=== PATIENT | male | born 1945 | race Caucasian/White ===

== ENCOUNTER → 2023-09-21 | Outpatient (CLI) | payer OTHER, SELFPAY ==
--- NOTE | 2023-09-21 12:55 | ECHOD_ITS ---
Reason For Study: Isch. Heart Disease Procedure This was a 2D Doppler, Color Flow transthoracic echocardiogram. Exam performed in department. Left Ventricle Normal LV size. Moderate concentric left ventricular hypertrophy. Left ventricular systolic function is normal. The estimated ejection fraction is 60 %. Stage 1 diastolic dysfunction. No regional wall motion abnormalities noted. Right Ventricle Normal RV size. Normal systolic function. Atria Normal left atrium. Normal right atrium. Mitral Valve Bileaflet diffuse mitral valve thickening. Tricuspid Valve Normal tricuspid valve. Aortic Valve Trisinus/trileaflet aortic valve. Mild focal aortic valve calcification. Pulmonic Valve Normal pulmonic valve. Trivial pulmonic valve insufficiency. Great Vessels Normal aortic root. The pulmonary artery is normal size. Inferior vena cava collapse with sniff. Pericardium/Pleural No pericardial effusion. MMode/2D Measurements & Calculations LVIDd: 4.7 cm IVSd: 1.9 cm Ao root diam: 3.9 cm LVIDs: 3.7 cm LVPWd: 1.3 cm LA dimension: 4.1 cm FS: 22.4 % LAV(MOD-bp): 47.2 ml LVAd ap4: 23.5 cm2 SV(MOD-sp4): 34.7 ml LAV(MOD-bp) Indexed: 22.4 ml/m2 LVLd ap4: 7.5 cm LAV(MOD-sp2): 41.5 ml EDV(MOD-sp4): 60.9 ml LAV(MOD-sp4): 48.8 ml EDV(sp4-el): 62.9 ml LVAs ap4: 14.5 cm2 LVLs ap4: 7.0 cm ESV(MOD-sp4): 26.2 ml ESV(sp4-el): 25.6 ml EF(MOD-sp4): 57.0 % EF(sp4-el): 59.3 % SV(sp4-el): 37.3 ml LA A4 area: 18.8 cm2 RA A4 area: 17.9 cm2 Time Measurements MV dec time: 0.19 sec Doppler Measurements & Calculations MV E max dimitry: 62.0 cm/sec Lat Peak E' Dimitry: 7.0 cm/sec MV V2 max: 96.4 cm/sec MV A max dimitry: 86.3 cm/sec E/E' lat: 8.8 MV max P.7 mmHg MV E/A: 0.72 MV V2 mean: 58.1 cm/sec MV mean P.6 mmHg MV V2 VTI: 15.7 cm MV P1/2t max dimitry: 76.5 cm/sec Ao V2 max: 109.8 cm/sec LV V1 max: 81.7 cm/sec MV P1/2t: 72.1 msec Ao max P.8 mmHg LV V1 max P.7 mmHg Ao V2 mean: 76.7 cm/sec LV V1 mean P.5 mmHg MV dec slope: 310.9 cm/sec2 Ao mean P.7 mmHg LV V1 mean: 55.8 cm/sec MVA(P1/2t): 3.1 cm2 Ao V2 VTI: 20.5 cm LV V1 VTI: 14.5 cm AV (velocity ratio): 0.71 PA V2 max: 86.8 cm/sec ECHO/Echo Complete Interpretation Summary Normal LV size. Left ventricular systolic function is normal. The estimated ejection fraction is 60 %. Stage 1 diastolic dysfunction. Moderate concentric left ventricular hypertrophy. Ordering Physician: Bo Mederos Referring Physician: Bo Mederos Performed By: Celestino Overton RCS
== END | disposition home or self-care (01) ==
PROVIDERS: Referring Provider Chiropractor; Visit Provider Chiropractor
DX: I42.2 Other hypertrophic cardiomyopathy (principal)
CPT/HCPCS: 93306